=== PATIENT | male | born 1995 | race Caucasian/White ===

== ENCOUNTER 2016-07-01 10:00 | Emergency (ER) | payer OTHER, MEDICAID ==
[2016-07-01] MEDS ORDERED: DEXAMETHASONE 4 MG/ML VIAL ONE (11:56)
[2016-07-01] MEDS ORDERED: Ibuprofen 400 MG TAB ONE (11:56)
[2016-07-01] MEDS ORDERED: CYCLOBENZAPRINE 10 MG TAB ONE (11:56)
[2016-07-01] MEDS ORDERED: ONDANSETRON ODT 4 MG TAB ONE (11:56)
[2016-07-01] MEDS ORDERED: DILAUDID 1 MG/ML AMP ONE (11:57)
== END 2016-07-01 13:37 | disposition home or self-care (01) ==
LOC: ER 10:00
DX: S39.012A Strain of muscle, fascia and tendon of lower back, initial encounter (principal); G89.11 Acute pain due to trauma
CPT/HCPCS: 72100; 96372